=== PATIENT | female | born 1990 | race Caucasian/White ===

== ENCOUNTER 2017-06-30 10:01 | Emergency (ER) | payer SELFPAY ==
[~2017-06-30] VITALS: Ht 165.1 cm; Wt 102.7 kg
[~2017-06-30 10:01] MED LIST: PREN-127 PO; PRENATAL
[2017-06-30] MEDS ORDERED: KETOROLAC 30MG/ML VIAL IV STA (11:56)
[2017-06-30] MEDS ORDERED: ONDANSETRON HCL 4MG/2ML VIAL IV STA (11:56)
[2017-06-30] MEDS ORDERED: SODIUM CHLORIDE 0.9% 1,000 ML IV ONE (11:56)
[2017-06-30 12:12] LABS: BASOPHILS % 0.4 % (0.0-2.0); EOSINOPHILS % 1.5 % (0.0-5.0); HEMATOCRIT. 36.9 % (36.0-48.0); HEMOGLOBIN. 12.7 g/dL (12.0-16.0); LYMPHOCYTES % 17.3 % (20.0-50.0); MEAN CORPUSCULAR HEMOGLOBIN 30.2 pg (28.0-32.0); MEAN CORPUSCULAR VOLUME 87.8 fL (81.0-99.0); MEAN PLATELET VOLUME 8.7 fl (7.4-10.4); NEUTROPHILS % 73.8 % (40.0-76.0); PLATELET 215 x1000/uL (130-400); RED BLOOD CELL COUNT 4.21 mill/uL (4.2-5.4); RED CELL DISTRIBUTION WIDTH 12.3 % (11.6-14.6)
[2017-06-30 12:18] LABS: CLARITY URINE TURBID (CLEAR); COLOR URINE YELLOW (YELLOW); GLUCOSE URINE NEGATIVE (NEGATIVE); KETONES URINE NEGATIVE (NEGATIVE); LEUKOCYTE ESTERASE URINE 3+ (NEGATIVE); NITRITE URINE NEGATIVE (NEGATIVE); OCCULT BLOOD URINE 3+ (NEGATIVE); PH URINE 5.5 (4.5-8.0); PROTEIN URINE 2+ (NEGATIVE); SPECIFIC GRAVITY URINE 1.023 (1.005-1.030); UROBILINOGEN URINE 0.2 E.U./dL (0.2-1.0)
[2017-06-30 12:20] LABS: PROTHROMBIN TIME 10.8 sec (9.4-11.6)
[2017-06-30 12:27] LABS: CARBON DIOXIDE 25 mEq/L (21-32); CHLORIDE 107 mEq/L (98-107)
[2017-06-30 13:11] VITALS: BP 95/47
[2017-06-30] MEDS ORDERED: CEFTRIAXONE SODIUM 1 G/VIAL IM ONE (13:15)
[2017-06-30] MEDS ORDERED: NITROFURANTOIN 100MG M/M CAPSULE PO ONE (13:15)
[2017-06-30] MEDS ORDERED: CEFTRIAXONE 1 G PREMIX 50 ML IV ONE (13:30)
== END 2017-06-30 16:13 | disposition home or self-care (01) ==
LOC: ER 10:26
DX: N20.0 Calculus of kidney (principal); N85.8 Other specified noninflammatory disorders of uterus; Z98.890 Other specified postprocedural states
CPT/HCPCS: 36415; 74176; 76830; 76856; 80053; 81001; 81025; 83690; 85025; 85610; 96361; 96365; 96375; 99285; J0696; J1885; J2405; J7030; Z7610

== ENCOUNTER 2018-12-07 11:36 | Emergency (ER) | payer SELFPAY ==
[~2018-12-07] VITALS: Ht 167.6 cm; Wt 109.0 kg
[2018-12-07] MEDS ORDERED: IBUPROFEN 800MG TABLET PO ONE (12:30)
[2018-12-07 13:33] VITALS: BP 114/81
== END 2018-12-07 13:35 | disposition home or self-care (01) ==
LOC: ER 11:36
DX: S02.2XXA Fracture of nasal bones, initial encounter for closed fracture (principal); Z79.899 Other long term (current) drug therapy; Y08.89XA Assault by other specified means, initial encounter; Y93.89 Activity, other specified; Y92.89 Other specified places as the place of occurrence of the external cause; Y99.8 Other external cause status
CPT/HCPCS: 70160; 81025; 99283